=== PATIENT | female | born 1970 | race Caucasian/White ===

== ENCOUNTER → 2025-02-08 10:21 | Outpatient (BNVA) | payer OTHER, SELFPAY | PROVIDERS: Visit Provider Specialist | DX: M17.11 Unilateral primary osteoarthritis, right knee (principal); M21.061 Valgus deformity, not elsewhere classified, right knee | CPT/HCPCS: 73560; 73565 ==

== ENCOUNTER 2025-02-22 08:27 | Outpatient (CLI) | payer OTHER, SELFPAY ==
--- NOTE | 2025-02-22 08:45 | MR_ITS ---
WS: [id number] MRI RIGHT KNEE HISTORY: right knee pain COMPARISON: Radiograph 02/08/2025 Anterior cruciate ligament: Increased T2 signal in the ACL. There is pinching and narrowing of the distal ACL due to slight anterolisthesis of the tibial plateau. There is no tear appreciated. Posterior cruciate ligament: Intact. Medial collateral ligament: Slight displacement from the joint line by small osteophytes. Small amount of increased signal centrally within the ligament but no tear. Posterior lateral corner structures: Increased signal and thickening of the popliteus tendon. Medial menisci: Intact. Normal signal, size and shape. Lateral meniscus: Abnormal anterior and posterior horns. Small caliber anterior horn. Complex tear involving the posterior horn. There is a horizontal tear in the body the meniscus. Blunting and loss of the normal contour of the free edge. Abnormal signal extends along both the superior and inferior articular surfaces. Extensor mechanism: Distal quadriceps tendon and patellar tendons are intact. Fluid and soft tissue: Small to moderate suprapatellar joint effusion. There are a few plica present within the effusion. There is additional soft tissue edema along the lateral knee. No Caballero's cyst. Osseous and articular structures: Patellofemoral compartment: Marked narrowing the patellofemoral joint space with complete loss of cartilage. Hypertrophic bone formation. Lateral patellar retinaculum is wavy. Suspect at least partial tear. This may be a chronic tear from a remote injury with healing. Medial compartment: Mild narrowing of the medial compartment with marginal osteophytes. Diffuse moderate chondromalacia. No marrow edema. There is a small amount of marrow edema at the base of the tibial spines. Lateral compartment: Severe narrowing of the lateral compartment with complete loss of cartilage. There is a small amount of marrow edema along the tibial plateau. Small marginal osteophytes. Osteophyte formation along the posterior femoral condyles. MR/MR knee RT wo con* [id number] IMPRESSION: 1. Severe lateral compartment osteoarthritis with complete loss of cartilage a nd bone upon bone. Small amount of reactive marrow edema along the tibial plate au. 2. Marked narrowing of the patellofemoral joint space with complete loss of ca rtilage. 3. Wavy appearance of the lateral patellar retinaculum. Suspect prior tear wit h healing. 4. No ACL tear although there is intrasubstance degeneration. There is a focal pinching of the ACL due to a slight anterolisthesis of the tibia. Patient is a t risk for tearing the ACL. 5. Anterior and posterior horns of the lateral meniscus are abnormal. Complex tear in the posterior horn. Small caliber anterior horn. 6. Small to moderate suprapatellar effusion. 7. Mild soft tissue edema along the lateral knee. 8. Mild narrowing the medial compartment with diffuse moderate chondromalacia.
== END 2025-02-22 08:28 | disposition home or self-care (01) ==
LOC: RAD 08:31
PROVIDERS: PCP Registered Nurse; Visit Provider Specialist
DX: M17.11 Unilateral primary osteoarthritis, right knee (principal); M25.861 Other specified joint disorders, right knee; M22.2X1 Patellofemoral disorders, right knee; M22.8X1 Other disorders of patella, right knee; M23.8X1 Other internal derangements of right knee; M25.461 Effusion, right knee; M94.261 Chondromalacia, right knee; M23.311 Other meniscus derangements, anterior horn of medial meniscus, right knee; M23.341 Other meniscus derangements, anterior horn of lateral meniscus, right knee; R93.6 Abnormal findings on diagnostic imaging of limbs; M89.38 Hypertrophy of bone, other site; S83.281A Other tear of lateral meniscus, current injury, right knee, initial encounter; X58.XXXA Exposure to other specified factors, initial encounter; M25.761 Osteophyte, right knee
CPT/HCPCS: 73721

== ENCOUNTER 2025-03-22 09:44 | Outpatient (CLI) | payer MEDICAID, SELFPAY ==
--- NOTE | 2025-03-22 10:15 | CT_ITS ---
WS: [id number] CT RIGHT KNEE, NONCONTRAST TECHNIQUE: Noncontrast CT of the RIGHT knee to include the RIGHT hip and ankle. CLINICAL INFORMATION: PER [facility] PROTOCOL COMPARISON: None. DLP: 978.[address] scans at [facility] use at least one of these dose optimization techniques: automated exposure control; mA and/or kV adjustment per patient size (includes targeted exams where dose is matched to clinical indication); or iterative reconstruction. FINDINGS: Moderate to advanced tricompartment tricompartmental arthritis RIGHT knee. Hypertrophic patella. Moderate suprapatellar effusion. Hypertrophic changes along the joint line. Mild degenerative arthritis sacroiliac joints. Sigmoid diverticulosis. CT/CT knee RT [facility] [id number] IMPRESSION: Images obtained for preoperative purposes.
== END 2025-03-22 09:45 | disposition home or self-care (01) ==
LOC: RAD 09:47
PROVIDERS: PCP Registered Nurse; Visit Provider Specialist
DX: M17.11 Unilateral primary osteoarthritis, right knee (principal); M79.4 Hypertrophy of (infrapatellar) fat pad; M25.461 Effusion, right knee; M19.90 Unspecified osteoarthritis, unspecified site; K57.30 Diverticulosis of large intestine without perforation or abscess without bleeding
CPT/HCPCS: 73700

== ENCOUNTER → 2025-04-08 12:17 | Outpatient (BNVA) | payer MEDICAID, SELFPAY | PROVIDERS: PCP Registered Nurse; Referring Provider Family Medicine; Visit Provider Family Medicine | DX: Z01.818 Encounter for other preprocedural examination (principal) | CPT/HCPCS: 80053; 81000; 85025 ==

== ENCOUNTER → 2025-04-13 12:44 | Outpatient (BNVA) | payer MEDICAID, SELFPAY | PROVIDERS: PCP Registered Nurse; Visit Provider Family Medicine | DX: M17.11 Unilateral primary osteoarthritis, right knee (principal) | CPT/HCPCS: 81000; 87086 ==

== ENCOUNTER 2025-04-20 14:00 | Observation (INO) | payer MEDICAID, SELFPAY ==
[2025-04-20] VITALS (12 sets, daily range): BP systolic 106–172; BP diastolic 60–103; PULSE 66–95; RESP 13–19; TEMP 36.6–36.9; O2SAT 96–100; BMI 32.5
[2025-04-20] MEDS: acetaminophen 1,000 MG/100 ML PIGGYBACK 400 MG IV ×3 (09:26→22:28)
--- NOTE | 2025-04-20 10:36 | P.HPUD_ITS ---
Surgery/Procedure H&P Update DATE OF PROCEDURE: April 20, 2025 DATE H&P PERFORMED: 04/08/25 H&P UPDATE INFORMATION: I have reviewed H&P completed within last 30 days, I have examined patient prior to procedure, No changes to prior documentation, H&P is in [facility] EMR on date indicated and Risks and benefits of the procedure reviewed CHANGES TO PREVIOUS DOCUMENTATION: See office note on March 03 for preoperative surgical evaluation and preoperative medical evaluation on April 08 for heart and lung eval and optimization for surgery PLANNED PROCEDURE: Operation Date: 04/20/25 10:45 Proposed Procedures p Daniel Robot Total Knee Arthroplasty(Right) - Lesa Alvarez MD Related Problem List Diagnoses 1. Primary osteoarthritis of right knee:
[2025-04-20] MEDS: ceFAZolin 2,000 mg SDV 2000 MG IVP ×3 (11:19→22:28)
[2025-04-20] MEDS: tranexamic acid 1,000 MG/100 ML PREMIX 600 MG IV ×2 (11:45→16:49)
[2025-04-20] MEDS: BUPivacaine 0.5% INJ 30 mL INJECTION (12:22)
[2025-04-20] MEDS: ceFAZolin 1,000 mg SDV 1000 MG IVP (12:22)
[2025-04-20] MEDS: BUPivacaine liposome 13.3 mg/mL SDV 20 mL 266 MG INFILTRATI (12:22)
--- NOTE | 2025-04-20 13:58 | P.OP_ITS ---
Operative Report Date of procedure: April 20, 2025 Pre-op diagnosis: Primary osteoarthritis right knee with large deflates, varus deformity, and flexion contracture Post-op diagnosis: Primary osteoarthritis right knee with large deflates, varus deformity, and flexion contracture Post-op findings: Large osteophytes with slight flexion contracture and varus deformity Procedure done: Right total knee arthroplasty with Daniel guidance Implants: The Stephanie total knee system with a size 3 triathlon beaded cruciate retaining femur right, a triathlon titanium tibial component size 2 beaded, a triathlon X3 tibial bearing CS insert size 2 X 10 mm and a beaded triathlon titanium asymme tric patella size 32 mm x 10 mm Specimens removed/disposition: Bone, disposed of Pathology: None Surgeon: Lesa Alvarez MD [employer] Operator: Brab Grmim, nurse practitioner who services were required for retraction, exposure, closure, and completion of the surgical procedure Anesthesia: Spinal (ASA 2 with MAC, intraoperative Exparel) Estimated blood loss (mL): 180 Tourniquet time (min): 0 (Not utilized) IV fluids (mL): 1,900 Urine output (mL): 50 Complications: None Findings: Severe degenerative osteoarthritis with varus deformity and slight flexion contracture. Condition: stable Disposition: PACU (Then admit to floor for postoperative rehabilitation and pain management) Brief History: This 55-year-old presents today for same-day surgery for right total knee arthroplasty. The patient had significant limitations in her activities of daily living. She was unresponsive to nonsurgical treatments and wished to proceed with total knee arthroplasty. Risks and complications of the surgery were discussed with her. Consents were signed in the office and questions were answered. She was seen the morning of surgery and further Opportunity for questions was offered at that time. Procedure: The patient was brought to the operating theater, and after undergoing spinal anesthesia, ASA 2, the right lower extremity was prepped with DuraPrep and draped in usual fashion following placement of a tourniquet high on the leg. The leg was then draped free. Tourniquet was placed on the leg but was not elevated throughout the surgical procedure. Following exposure of the site of surgery, a surgical pause was performed. At the time of the surgical pause, we confirmed the site and side of surgery. Additionally, we confirmed the appropriate and timely administration of preoperative antibiotics, Ancef 2 g. Tranexamic acid 1 g was given preoperatively and will be given again on the floor for 1 dose postoperatively. The availability of equipment was confirmed, and the patient's identity was verbalized as well. Following the surgical pause, an incision was made centering over the patella continuing proximally and distally as necessary to allow access to the knee joint. Dissection continued through skin and soft tissues using a scalpel. Hemostasis was obtained using electrocautery. The skin incision was followed by a median parapatellar arthrotomy. The leg was extended and the patella was able to be displaced laterally. Appropriate arrays and markers were placed in appropriate position for use of the Daniel. Preoperative planning had been accomplished and was discussed in detail with the Daniel escrow representative. Intraop erative mapping of the femur and tibia was accomplished after the arrays were placed. Once we had accomplished the Daniel mapping, we began the appropriate resections for placement of the prosthesis. The plan was for a cruciate retaining right total knee arthroplasty. Once appropriate mapping had been accomplished retraction was established using manual retraction by the Daniel leg positioner and retractors. The knee was evaluated. There was eburnation particularly of the lateral femoral condyle.? There were large osteophytes about the trochlear groove as well as the patella and medial tibial plateau.? After balancing the knee within the Daniel program, the appropriate bone resection was accomplished. Initial resection was accomplished on the tibia followed by appropriate resections on the femur. We had performed a medial release at the beginning of the procedure to allow for placement of the array. Proximal tibia was evaluated and it was felt that appropriate size for the tibia was a size 2, and appropriate femoral size was a size 3. A trial reduction was accomplished after osteophytes had been removed, the medial and lateral meniscus were excised, and bone cuts had been accomplished as above. We had removed the anterior cruciate ligament at the beginning of the case and preserved the posterior cruciate ligament. Trial reduction was accomplished with a size 3 femoral cruciate retaining component and a size 2 tibia with a CS tibial bearing insert which was 9 mm in thickness. Initial trial reduction demonstrated that the knee had excellent stability and full flexion, but due to slight hyperextension, we elected to increase to a 10 mm in thickness insert, CS. This gave excellent medial and lateral stability in addition to full extension and flexion without lift off. Decision was made to use a 10 mm insert as the final implant. The knee was stable with no varus or valgus opening. The trial components were removed after the femur had been drilled. Prior to removal of the tibial tray which had been pinned in position with appropriate rotation as determined by the Daniel plan, we broached the tibia. Subsequently, the 4 drill holes were made for the prosthetic component. All trial components had been removed, and the wound was irrigated. Plans were made for insertion of the prosthetic components. Prior to this, the patella was manually prepared using a checking system. After resection of the articular surface, it was measured and measured a 32 mm patella. Patellar height was restored with the patellar component. Once again, the wound was irrigated. The Tritanium tibia was impacted into position.? The beaded femur was then impacted into position in a cementless fashion. The CS tibial insert was placed prior to placement of the femoral component. The patella was pressed into position with a patellar clamp.? Exparel was injected prior to placement of the components. The knee was then copiously irrigated with betadine and saline and suctioned dry. Attention was then directed to closure. Closure was accomplished with 0 Vicryl in the fascial tissues followed by a running #1 strata fix 1 from proximal to distal and 1 from distal to proximal.? This was followed by Surgiflo and vancomycin powder. Subcutaneous tissues were closed with 2-0 Monocryl STRATAFIX, and the skin was closed in a running subcuticular fashion with 3-0 Monocryl strata fix.? A sterile dressing was then placed consisting of Dermabond Prineo, OpSite, sterile soft roll including over the foot, and an Justin wrap. The patient was returned to the Recovery Room in a satisfactory condition. X-rays were obtained and reviewed there.? The patient will be discharged to the floor for postoperative rehabilitation and pain management. Related Problem List Diagnoses 1. Primary osteoarthritis of right knee:
--- NOTE | 2025-04-20 14:11 | XRR_ITS ---
PROCEDURE INFORMATION: Exam: XR Right Knee Exam date and time: 04/20/2025 2:14 PM Age: 55 years old Clinical indication: Device placement; Joint replacement hardware; Prior surgery; Surgery date: Post-operative (0-2 days); Surgery type: Right total knee TECHNIQUE: Imaging protocol: Radiologic exam of the right knee. Views: 1 or 2 views. COMPARISON: CT knee RT [facility] [id number] 03/22/2025 10:06 AM FINDINGS: Bones/joints: Right total knee arthroplasty postsurgical changes with intact hardware. Soft tissues: Postoperative gas and swelling. XR/XR knee RT 1-2V [id number] IMPRESSION: Recent right total knee arthroplasty postsurgical changes.
--- NOTE | 2025-04-20 14:25 | ANE.PACU2 ---
Inpatient post-anesthesia follow up: Airway intact: Yes Vital signs: Temperature 98.4 F Pulse Rate 78 Respiratory Rate 16 Blood Pressure 125/79 Pulse Oximetry 96 Oxygen Delivery Me thod Room Air Oxygen Flow Rate 8 Fraction of Inspir ed Oxygen Hydration adequate: Yes Nausea and vomiting: No Pain level: 1 Mental status: Baseline
[2025-04-20] MEDS: oxyCODONE 5 mg IR Tab/Cap PO ×2 (16:43→20:38)
[2025-04-20] MEDS: sennosides-docusate Tablet 2 TAB PO (16:44)
[2025-04-20] MEDS: mupirocin oint 22 gm 1 APPLIC NASAL (16:46)
[2025-04-20] MEDS: chlorhexidine gluconate 0.12% Btl 473 mL 30 ML MUCOUS MEM ×2 (16:49→22:29)
[2025-04-20] MEDS: ondansetron 2 mg/ML SDV 2 mL 4 MG IVP (17:15)
[2025-04-21] VITALS (7 sets, daily range): BP systolic 149–153; BP diastolic 77–78; PULSE 64–70; RESP 15–18; TEMP 36.4–36.9; O2SAT 96–97
[2025-04-21] MEDS: oxyCODONE 5 mg IR Tab/Cap PO ×4 (01:12→13:24)
[2025-04-21] MEDS: sennosides-docusate Tablet 2 TAB PO (05:00)
[2025-04-21] MEDS: LOSARTAN 100 MG TABLET PO (05:00)
[2025-04-21] MEDS: multivitamin therapeutic Tablet 1 TAB PO (05:00)
[2025-04-21] MEDS: chlorhexidine gluconate 0.12% Btl 473 mL 30 ML MUCOUS MEM (05:01)
[2025-04-21] MEDS: mupirocin oint 22 gm 1 APPLIC NASAL (05:01)
[2025-04-21 05:15] LABS: Hematocrit 35.7 % (36-47); Hemoglobin 12.00 g/dL (11.27-16.99); Mean Corpuscular HGB Conc 33.6 g/dL (30-55); Mean Corpuscular Hemoglobin 30.8 pg (27-33); Mean Corpuscular Volume 91.8 fl (85-98); Nucleated Red Blood Cells % 0 %; Platelet Count 264 10^3/cmm (157-399); Red Blood Count 3.89 10^6/uL (3.85-5.65); White Blood Count 9.47 10^3/uL (3.29-11.43)
[2025-04-21] MEDS: ceFAZolin 2,000 mg SDV 2000 MG IVP (06:09)
[2025-04-21] MEDS: acetaminophen 1,000 MG/100 ML PIGGYBACK 400 MG IV (06:09)
--- NOTE | 2025-04-21 09:38 | PC.CHAP ---
Pastoral Care Encounter/Spiritual Assessment Type of Contact [] Declined physiotherapy assistant visit [] Patient/Family/Request visit [] Outpatient visit [] Follow-up visit [] Physician referral [] Code/Alert [x] Routine visit [] Staff referral [] Actively dying [] Patient sleeping [] Family support [] [] Out of room [] Palliative care [] [] Receiving care in room [] Pre-surgical visit [] Trauma [] Long length of stay [] ICU visit [] Other: Relational/Emotional Strength [x] Patient feels connected with others/family/visitors/staff [] Distress [] Loneliness/isolation [] Abandonment Spirituality of Patient [x] Person of Fifi [] Attends Catholic of their Fifi [x] Believes in Prayer [] Reads Bible or Congregation materials [] There are Spiritual issues to be addressed [employer] Engraver Hand Interventions [x] Prayer [x] Active listening [] Non-anxious presence [x] Spiritual/emotional support [] Crisis/trauma care [] Spiritual counseling [] Bereavement support [] Provided bereavement packet [] Provided Bible/devotional materials [] Provided toy/stuffed animal, coloring book to patient or family member [] Provided Communion [] Anointing/Kaleva [] Salvation [x] Completed spiritual assessment [] Other: Impact on Illness or Injury [] Angry [] Fearful [] Anxious [] Often cries [] Exhaustion [] Unable to work [] Unable to attend spiritism [] Unable to walk/stand [] Unable to read [] Unable to drive [] Unable to eat/drink [] Unable to sleep [] Unable to be with family [] Patient intubated [] Other: Summary Time spent with patient 5 min
--- NOTE | 2025-04-21 14:06 | P.DS_ITS ---
Discharge Providers Date of Admission: 04/20/25 14:00 Date of Discharge: April 21, 2025 Attending Provider at Admission: Lesa Alvarez MD Attending Provider at Discharge: Lesa Alvarez MD Primary Care Provider: BECKY Goldstein Diagnoses at Discharge Discharge Diagnosis 1. Primary osteoarthritis of right knee: 2. Status post total right knee replacement not using cement: Reason for Visit Reason for Visit: M17.11 Brief History: This 55-year-old presents today for same-day surgery for right total knee arthroplasty. The patient had significant limitations in her activities of daily living. She was unresponsive to nonsurgical treatments and wished to proceed with total knee arthroplasty. Risks and complications of the surgery were discussed with her. Consents were signed in the office and questions were answered. She was seen the morning of surgery and further Opportunity for questions was offered at that time. Hospital Course Hospital Course This 55-year-old woman was admitted for same-day surgery in the form of right total knee arthroplasty. The patient did well following surgery. She was seen in her room on the first postoperative day. She was independent, and therapy was comfortable with her discharge. The patient and her family were also comfortable with discharge. Dressing was removed. The under dressing was dry with no evidence of DVT. The patient was discharged home to follow-up as scheduled. Physical Exam Const: COMMON NORMALS: no acute distress, average body habitus, patient oriented x3 and alert GENERAL APPEARANCE: cooperative and comfortable ORIENTATION/CONSCIOUSNESS: Yes awake HENMT: COMMON NORMALS: normocephalic and atraumatic HEAD & SCALP: normocephalic and atraumatic Eye: GENERAL EYE: appearance normal, both eyes and all related structures Chest: COMMONS NORMALS: normal inspection of the chest Resp: COMMON NORMALS: normal respiratory effort EFFORT & INSPECTION: Yes able to speak in complete sentences and Yes symmetric chest movement Extremity: RIGHT LOWER EXTREMITY: Yes knee joint (Large outer dressing removed) Right knee: Yes inspection (Primary dressing dry and intact, no significant ecchymosis or swelling), Yes palpation (Minimal tenderness), Yes ROM (Not evaluated) and Yes neurovascular exam (Intact distally) Neuro: COMMON NORMALS: patient oriented x3 SENSORIUM/ORIENTATION: Yes alert Psych: COMMON NORMALS: mental status grossly normal APPEARANCE: Yes grossly normal ATTITUDE: Yes calm and Yes engaged ATTENTION/CONCENTRATION: Yes attention grossly intact Skin: COMMON NORMALS: no rashes or lesions noted GENERAL SKIN EXAM: no rashes or lesions noted Urinary Catheter Management: Can: Cath Placed During This Visit: yes, but has since been removed by the nurse Reason for Continuing Indwelling Catheter: Perioperative Use in Selected Surgeries Urinary Catheter Date of Insertion: 04/20/25 Urinary Catheter Time of Insertion: 11:30 Date Urinary Catheter Removed: 04/21/25 Time Urinary Catheter Discontinued: 06:06 Discharge Data Studies Completed and Pending Completed Studies During Hospitalization Category Date Time Status XR knee RT 1-2V [id number] Urgent Exams 04/20/25 14:11 Completed Radiology Impressions Knee X-Ray 04/20/25 14:11 IMPRESSION: Recent right total knee arthroplasty postsurgical changes. Laboratory Results WBC 9.47 10^3/uL (3.29-11.43) 04/21/25 05:02 RBC 3.89 10^6/uL (3.85-5.65) 04/21/25 05:02 Hgb 12.00 g/dL (11.27-16.99) 04/21/25 05:02 Hct 35.7 % (36-47) L 04/21/25 05:02 MCV 91.8 fl (85-98) 04/21/25 05:02 MCH 30.8 pg (27-33) 04/21/25 05:02 MCHC 33.6 g/dL (30-55) 04/21/25 05:02 RDW 12.2 % (12.1-15.1) 04/21/25 05:02 Plt Count 264 10^3/cmm (157-399) 04/21/25 05:02 MPV 9.5 fL (7.4-10.4) 04/21/25 05:02 Neut % (Auto) 69.4 % 04/21/25 05:02 Lymph % (Auto) 19.1 % 04/21/25 05:02 [place] % (Auto) 9.6 % 04/21/25 05:02 Eos % (Auto) 1.4 % 04/21/25 05:02 Baso % (Auto) 0.3 % 04/21/25 05:02 Neut # (Auto) 6.57 10^3/uL (1.8-7.7) 04/21/25 05:02 Lymph # (Auto) 1.8 10^3/uL (0.8-4.8) 04/21/25 05:02 [place] # (Auto) 0.9 10^3/uL (0.2-0.9) 04/21/25 05:02 Eos # (Auto) 0.1 10^3/uL (0.0-0.8) 04/21/25 05:02 Baso # (Auto) 0.0 10^3/uL (0.0-0.1) 04/21/25 05:02 Nucleated RBC % (auto) 0 % 04/21/25 05:02 Nucleated RBCs # 0.0 /100WBC 04/21/25 05:02 Vitals Last Vital Signs Temp 97.5 F L 04/21/25 13:57 Pulse 70 04/21/25 13:57 Resp 16 04/21/25 13:57 BP 153/77 04/21/25 13:57 Pulse Ox 96 04/21/25 13:57 O2 Del Method Room Air 04/20/25 19:50 O2 Flow Rate 8 04/20/25 14:15 Discharge Plan Discharge Patient Disposition: Home Health Service Condition: Stable Prescriptions: New celecoxib 200 mg Capsule 200 mg PO 1XD 30 Days Qty: 30 0RF acetaminophen 500 mg Tablet 1,000 mg PO Q8H 15 Days Qty: 90 0RF aspirin 325 mg Tablet,Delayed Release (Dr/Ec) 325 mg PO DAILY 30 Days Qty: 30 0RF oxycodone 5 mg Tablet 5 mg PO Q4H PRN (Reason: Moderate To Severe Pain) 7 Days Qty: 40 0RF Continued losartan 100 mg tablet 100 mg PO DAILY Discharge Order = DC NOW: Discharge Order (Routine); Ordered 04/21/25 Ordered By: Lesa Alvarez Other Ambulatory Orders: DME: Walker (Order) Location: None Selected Ordered By: Lesa Alvarez Physical Therapy Eval and Treat Outpatient (Order) Timeframe: 3 Days Facility: [facility] - Location: Physical Therapy Ordered By: Lesa Alvarez [place] [facility] [place] Lesa Alvarez MD [Physician, Orthopedics] - 05/03/25 9:00 am Discharge Diet: Advance as tolerated and Usual diet Discharge Activity: Increase activity as tolerated, Limit activity as instructed, Use walker/crutches as instructed and As per PT/OT instructions Patient Instructions: Aspirin (By mouth), Oxycodone, Rapid Release (By mouth), Celecoxib (By mouth), Acute Wound Care (DC), Total Knee Replacement (DC), Opioid Safety, Post Anesthesia Care, Patient Portal & Marcelo Instructions Activity Restrictions/Additional Instructions: Ice and elevation right lower extremity. Range of motion, gait training, and ambulation per physical therapy. You may shower and get your knee wet, but do not submerge your knee in water. Maintain the dressing in place until it lifts up on its own at which time you may remove it. If it is still providing a good seal, we will remove it in the office. Discharge Attestations Time Spent in Discharge Care*: greater than 30 min Specific Discharge Activities: educating patient, educating and/or supporting family/caregiver, documenting/other paperwork and evaluating patient/reviewing data Quality Metrics Clinical Quality Measures [ No reported AMI, CVA or VTE this stay] Coding Level of Care Code Acute Code for Chg Fwd Diagnoses Primary osteoarthritis of right knee M17.11 Status post total right knee replacement not using cement Z96.651
--- NOTE | 2025-04-21 16:00 | PC.NURSE ---
IV removed intact. Patient tolerated well. Discharge instructions reviewed with patient and at this time. Both verbalized understanding of follow up appointments and medications. Patient assisted into private car.
== END 2025-04-21 16:05 | disposition home or self-care (01) ==
LOC: MEDSURG 14:00
PROVIDERS: Admitting Provider Specialist; PCP Registered Nurse; Visit Provider Specialist
PROC: 8E0Y0CZ Robotic Assisted Procedure of Lower Extremity, Open Approach (ICD-10-PCS; CPT 27447; principal; 2025-04-20 10:15)
DX: M17.11 Unilateral primary osteoarthritis, right knee (principal); M25.761 Osteophyte, right knee; M21.161 Varus deformity, not elsewhere classified, right knee; M24.561 Contracture, right knee
CPT/HCPCS: 27447; 20985; 36415; 51702; 73560; 85025; 97110; 97116; 97161; 97165; A4216; A4649; C1776; G0378; J0131; J0666; J0690; J2250; J2405; J2704; J3373; J3490; J7030; J9999